=== PATIENT | male | born 1930 | race Caucasian/White ===

== ENCOUNTER 2017-05-09 07:43 | Emergency (ER) | payer MEDICARE ==
[~2017-05-09] VITALS: Ht 170.2 cm; Wt 77.1 kg
[2017-05-09 09:32] LABS: Urine Bilirubin Negative (Negative); Urine Blood TRACE /uL (Negative); Urine Color Yellow (Yellow); Urine Glucose Normal (Normal); Urine Ketone Negative (Negative); Urine Mucus FEW (None Seen); Urine Nitrite Negative (Negative); Urine RBC 3 /hpf (0 - 3); Urine Squamous Epithelial Cell FEW /hpf (<5); Urine Urobilinogen Normal (Negative)
[2017-05-09 10:14] LABS: Basophils # (auto) 0.1 uL; Basophils % (auto) 0.7 % (0.0-2.0); Eosinophils # (auto) 0.1 uL; Eosinophils % (auto) 0.6 % (0.0-7.0); Hematocrit 34.2 % (41.0-53.0); Hemoglobin 11.3 g/dL (13.5-17.5); Lymphocytes # (auto) 0.8 uL; Lymphocytes % (auto) 7.9 % (10.0-50.0); Mean Corpuscular Hemoglobin 33.3 pg (28.0-32.0); Mean Corpuscular Hgb Conc. 33.1 g/dL (32.0-36.0); Mean Corpuscular Volume 100.7 fL (80.0-100.0); Mean Platelet Volume 8.8 fL (6.9-10.8); Monocytes # (auto) 0.9 uL; Neutrophils # (auto) 8.4 uL; Neutrophils % (auto) 81.8 % (37.0-80.0); Platelet Count (auto) 287 10^3/uL (140-450); Red Cell Distribution Width 13.9 % (11.8-14.3); White Blood Cell 10.2 10^3/uL (4.4-10.8)
[2017-05-09 10:45] LABS: Albumin 3.5 g/dL (3.4-5.0); BUN/Creatinine Ratio 14.5; Calcium 9.2 mg/dL (8.5-10.1); Magnesium 2.2 mg/dL (1.6-2.6); Potassium 4.1 mmol/L (3.5-5.1); Total Protein 6.9 g/dL (6.4-8.2)
[2017-05-09 10:51] LABS: Temperature: 22.2 C (20.0-25.0)
[2017-05-09 11:51] VITALS: BP 143/69
[2017-05-09] MEDS ORDERED: FUROSEMIDE 40 MG/4 ML VIAL IV ONE (12:15)
[2017-05-09] MEDS ORDERED: SPIRONOLACTONE 25 MG TAB PO ONE (12:15)
[2017-05-10] MEDS ORDERED: ALLO100T PO (15:06)
[2017-05-10] MEDS ORDERED: ASPI81CH43 GT (15:10)
[2017-05-10] MEDS ORDERED: TAM04C PO (15:10)
[2017-05-10] MEDS ORDERED: ATOR80TA PO (15:10)
[2017-05-10] MEDS ORDERED: NEBI20TA2 PO (15:10)
[2017-05-10] MEDS ORDERED: APIX2.5T OR (15:10)
[2017-05-10] MEDS ORDERED: EZET10TA2 PO (15:10)
[2017-05-10] MEDS ORDERED: ESOM40CA39 PO (15:10)
== END 2017-05-09 13:10 | disposition home or self-care (01) ==
LOC: ER 07:43 → EDBD 07:43 → ER 13:10
DX: I48.91 Unspecified atrial fibrillation (principal); J90 Pleural effusion, not elsewhere classified; R09.89 Other specified symptoms and signs involving the circulatory and respiratory systems; I10 Essential (primary) hypertension; K21.9 Gastro-esophageal reflux disease without esophagitis; E78.5 Hyperlipidemia, unspecified
CPT/HCPCS: 36415; 71010; 80053; 81001; 83735; 83880; 84484; 85025; 96374

== ENCOUNTER 2017-05-10 09:21 | Inpatient (IN) | payer MEDICARE ==
[~2017-05-10] VITALS: Ht 157.5 cm; Wt 70.2 kg
[2017-05-10] MEDS ORDERED: FUROSEMIDE 20 MG/2 ML VIAL IV ONE (09:45)
[2017-05-10 10:19] LABS: Basophils # (auto) 0.1 uL; Basophils % (auto) 0.7 % (0.0-2.0); Eosinophils # (auto) 0.1 uL; Eosinophils % (auto) 1.5 % (0.0-7.0); Hematocrit 33.8 % (41.0-53.0); Hemoglobin 11.3 g/dL (13.5-17.5); Lymphocytes # (auto) 0.9 uL; Lymphocytes % (auto) 10.4 % (10.0-50.0); Mean Corpuscular Hemoglobin 33.8 pg (28.0-32.0); Mean Corpuscular Hgb Conc. 33.5 g/dL (32.0-36.0); Mean Corpuscular Volume 100.9 fL (80.0-100.0); Mean Platelet Volume 8.9 fL (6.9-10.8); Monocytes # (auto) 1.1 uL; Monocytes % (auto) 12.6 % (0.0-12.0); Neutrophils # (auto) 6.5 uL; Neutrophils % (auto) 74.8 % (37.0-80.0); Platelet Count (auto) 286 10^3/uL (140-450); Red Cell Distribution Width 14.4 % (11.8-14.3); White Blood Cell 8.6 10^3/uL (4.4-10.8)
[2017-05-10 10:35] LABS: Urine Bilirubin Negative (Negative); Urine Blood TRACE /uL (Negative); Urine Color Yellow (Yellow); Urine Glucose Normal (Normal); Urine Ketone Negative (Negative); Urine Nitrite Negative (Negative); Urine RBC 5 /hpf (0 - 3); Urine Urobilinogen Normal (Negative)
[2017-05-10 10:35] LABS: INR 1.1 (0.9-1.15); Partial Thromboplastin Time 32.2 sec (22.64-33.71)
[2017-05-10 10:48] LABS: Temperature: 21.5 C (20.0-25.0)
[2017-05-10 10:49] LABS: Albumin 3.3 g/dL (3.4-5.0); BUN/Creatinine Ratio 13.7; Bilirubin, Total 1.3 mg/dL (0.2-1.0); Potassium 3.6 mmol/L (3.5-5.1); Total Protein 6.8 g/dL (6.4-8.2)
[2017-05-10] MEDS ORDERED: MORPHINE SULF INJ 2 MG/ML SYRINGE 1ML IV PRN (12:30)
[2017-05-10] MEDS ORDERED: NITROGLYCERIN 0.4 MG SL TAB SL PRN (12:30)
[2017-05-10] MEDS ORDERED: amLODIPine BESYLATE 5 MG TAB PO ONE (12:30)
[2017-05-10] MEDS ORDERED: PANTOPRAZOLE 40 MG TAB PO ONE (12:45)
[2017-05-10] MEDS ORDERED: FUROSEMIDE 40 MG/4 ML VIAL IV ONE (12:45)
[2017-05-10] MEDS ORDERED: POTASSIUM CHL 20 Meq TABLET PO ONE (12:45)
[2017-05-10] MEDS ORDERED: APIXABAN 2.5 MG TAB PO ONE (12:45)
[2017-05-10] MEDS ORDERED: METOPROLOL TARTRATE 25 MG TAB PO ONE (12:45)
[2017-05-10] MEDS ORDERED: ALLO100T PO (15:06)
[2017-05-10] MEDS ORDERED: ATOR80TA PO (15:10)
[2017-05-10] MEDS ORDERED: EZET10TA2 PO (15:10)
[2017-05-10] MEDS ORDERED: TAM04C PO (15:10)
[2017-05-10] MEDS ORDERED: APIX2.5T OR (15:10)
[2017-05-10] MEDS ORDERED: NEBI20TA2 PO (15:10)
[2017-05-10] MEDS ORDERED: ESOM40CA39 PO (15:10)
[2017-05-10] MEDS ORDERED: ASPI81CH43 GT (15:10)
[2017-05-10] MEDS: TAMSULOSIN HYDROCHLORIDE 0.4 MG CAP PO SCH (17:43)
[2017-05-10 20:00] VITALS: BP 151/81
[2017-05-10 21:23] VITALS: BP 150/81
[2017-05-10] MEDS: ATORVASTATIN 20 MG TAB PO SCH (22:41)
[2017-05-10] MEDS: METOPROLOL TARTRATE 25 MG TAB PO SCH (22:41)
[2017-05-10] MEDS: APIXABAN 2.5 MG TAB PO SCH (22:41)
[2017-05-11] VITALS (7 sets, daily range): BP systolic 130–157; BP diastolic 66–100
[2017-05-11 07:06] LABS: BUN/Creatinine Ratio 13.7; Calcium 9.3 mg/dL (8.5-10.1); Potassium 3.5 mmol/L (3.5-5.1)
[2017-05-11] MEDS ORDERED: amLODIPine BESYLATE 5 MG TAB PO SCH (10:00)
[2017-05-11] MEDS: FUROSEMIDE 40 MG/4 ML VIAL IV SCH (10:09)
[2017-05-11] MEDS: APIXABAN 2.5 MG TAB PO SCH ×2 (10:09→21:58)
[2017-05-11] MEDS: POTASSIUM CHL 20 Meq TABLET PO SCH (10:10)
[2017-05-11] MEDS: ALLOPURINOL 100 MG TAB PO SCH (10:10)
[2017-05-11] MEDS: PANTOPRAZOLE 40 MG TAB PO SCH (10:10)
[2017-05-11] MEDS: METOPROLOL TARTRATE 25 MG TAB PO SCH ×2 (10:11→21:59)
[2017-05-11] MEDS ORDERED: hydrALAZINE HCL 20 MG/ML VL IV PRN (11:30)
[2017-05-11] MEDS: TAMSULOSIN HYDROCHLORIDE 0.4 MG CAP PO SCH (17:53)
[2017-05-11] MEDS: ATORVASTATIN 20 MG TAB PO SCH (21:57)
[2017-05-12 05:00] VITALS: BP 106/55
[2017-05-12 08:00] VITALS: BP 126/0
[2017-05-12 09:00] VITALS: BP 126/75
[2017-05-12] MEDS: FUROSEMIDE 40 MG/4 ML VIAL IV SCH ×2 (10:00→13:04)
[2017-05-12] MEDS ORDERED: amLODIPine BESYLATE 5 MG TAB PO SCH (10:00)
[2017-05-12 13:00] VITALS: BP 142/67
[2017-05-12] MEDS: APIXABAN 2.5 MG TAB PO SCH (13:04)
[2017-05-12] MEDS: POTASSIUM CHL 20 Meq TABLET PO SCH (13:05)
[2017-05-12] MEDS: METOPROLOL TARTRATE 25 MG TAB PO SCH (13:05)
[2017-05-12] MEDS: PANTOPRAZOLE 40 MG TAB PO SCH (13:06)
[2017-05-12] MEDS: ALLOPURINOL 100 MG TAB PO SCH (13:06)
[2017-05-12 13:24] VITALS: BP 142/67
== END 2017-05-12 15:30 | disposition home or self-care (01) | DRG 291 ==
LOC: ER 09:21 → EDSEX 09:21 → EDBD 09:21 → TELE 09:22 → TELE-E-ADS 14:28 → TELE-CENTR 18:31
PROVIDERS: ADMIT Internal Medicine; ATTEND Internal Medicine
DX: I13.0 Hypertensive heart and chronic kidney disease with heart failure and stage 1 through stage 4 chronic kidney disease, or unspecified chronic kidney disease (principal); I50.43 Acute on chronic combined systolic (congestive) and diastolic (congestive) heart failure; D68.69 Other thrombophilia; I48.91 Unspecified atrial fibrillation; N18.3 Chronic kidney disease, stage 3 (moderate); K21.9 Gastro-esophageal reflux disease without esophagitis; I70.0 Atherosclerosis of aorta; F17.290 Nicotine dependence, other tobacco product, uncomplicated; M10.9 Gout, unspecified; N40.0 Benign prostatic hyperplasia without lower urinary tract symptoms; Z95.5 Presence of coronary angioplasty implant and graft; Z90.49 Acquired absence of other specified parts of digestive tract
CPT/HCPCS: 36415; 51702; 71010; 80048; 80053; 81001; 83735; 83880; 84443; 84484; 85025; 85610; 85730; 93005; 93306; 96374